=== PATIENT | female | born 1960 | race Caucasian/White ===

== ENCOUNTER 2020-06-07 06:07 | Emergency (ER) | payer BC ==
[~2020-06-07] VITALS: Ht 167.6 cm; Wt 113.4 kg
[2020-06-07 06:12] VITALS: BP 152/77
[2020-06-07] MEDS ORDERED: MELOXICAM15 MG PO (06:17)
[2020-06-07] MEDS ORDERED: CLARITIN10 M3 PO (06:18)
[2020-06-07] MEDS ORDERED: SINGULAIR 10 MG10 M1 PO (06:18)
[2020-06-07] MEDS ORDERED: AMBIEN 10 MG TA10 MG PO (06:18)
[2020-06-07] MEDS ORDERED: INDERAL LA120 M1 PO (06:18)
[2020-06-07] MEDS ORDERED: LISINOPRIL2.5 MG PO (06:19)
[2020-06-07] MEDS ORDERED: PREVACID30 MG PO (06:20)
[2020-06-07] MEDS ORDERED: SERTRALINE HCL100 MG PO (06:20)
[2020-06-07] MEDS ORDERED: SIMVASTATIN80 MG PO (06:20)
[2020-06-07] MEDS ORDERED: TRESIBA100 UNIT/1 SUBQ (06:21)
[2020-06-07] MEDS ORDERED: NOVOLOG100 UNIT/M SUBQ (06:21)
[2020-06-07] MEDS ORDERED: AMITIZA8 MCG PO (06:22)
== END 2020-06-07 06:41 | disposition home or self-care (01) ==
LOC: M.ERS 06:07
DX: S91.114A Laceration without foreign body of right lesser toe(s) without damage to nail, initial encounter (principal); I10 Essential (primary) hypertension; E78.5 Hyperlipidemia, unspecified; K21.9 Gastro-esophageal reflux disease without esophagitis; Z98.890 Other specified postprocedural states; Z79.899 Other long term (current) drug therapy; W45.8XXA Other foreign body or object entering through skin, initial encounter; Y93.89 Activity, other specified; Y92.89 Other specified places as the place of occurrence of the external cause; Y99.8 Other external cause status

== ENCOUNTER 2020-07-28 16:08 | Emergency (ER) | payer BC ==
[~2020-07-28] VITALS: Ht 162.6 cm; Wt 113.4 kg
[~2020-07-28 16:08] MED LIST: AMBIEN 10 MG TA10 MG PO; AMITIZA8 MCG PO; CLARITIN10 M3 PO; INDERAL LA120 M1 PO; LISINOPRIL2.5 MG PO; MELOXICAM15 MG PO; NOVOLOG100 UNIT/M SUBQ; PREVACID30 MG PO; SERTRALINE HCL100 MG PO; SIMVASTATIN80 MG PO; SINGULAIR 10 MG10 M1 PO; TRESIBA100 UNIT/1 SUBQ
[2020-07-28] MEDS ORDERED: DICLOFENAC SODI75 MG PO (17:51)
[2020-07-28] MEDS ORDERED: FLEXERIL PO (17:51)
[2020-07-28 18:01] VITALS: BP 151/63
== END 2020-07-28 18:02 | disposition home or self-care (01) ==
LOC: M.ERS 16:08
DX: M54.5 Low back pain (principal); M62.830 Muscle spasm of back; I10 Essential (primary) hypertension; E78.5 Hyperlipidemia, unspecified; K21.9 Gastro-esophageal reflux disease without esophagitis; Z98.890 Other specified postprocedural states; G20 Parkinson's disease; W18.39XA Other fall on same level, initial encounter; Y93.89 Activity, other specified; Y92.89 Other specified places as the place of occurrence of the external cause; Y99.8 Other external cause status